=== PATIENT | male | born 1985 | race Caucasian/White ===

== ENCOUNTER 2016-08-25 23:32 | Inpatient (IN) | payer BC, OTHER ==
[2016-08-25] MEDS ORDERED: DIPH,PERTUS(ACELL)TETVAC-LF 0.5 ML VIAL IM ONE (23:38)
[2016-08-25] MEDS ORDERED: ceFAZolin 1,000 MG in DEXTROSE/WATER 1 50ML.BAG IVPB STA (23:38)
[2016-08-25] MEDS ORDERED: RX INFO: IV CONTRAST WAS GIVEN 1 EACH MISC MISCELLANE PRN (23:38)
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
[2016-08-26 00:04] LABS: Basophils # (A) 0.1 k/uL (0-0.2); Basophils % (A) 1 %; CH 28.6; CHCM 33.4; Eosinophils # (A) 0.1 k/uL (0-0.7); Eosinophils % (A) 1 %; HCT 43.5 % (39.0-53.0); HDW 2.31; HGB 14.1 gm/dL (13.0-17.5); Luc # (Auto) 0.14; Luc % (Auto) 2; Lymphocytes # (A) 2.8 k/uL (1.0-4.8); Lymphocytes % (A) 30 %; MCH 27.8 pg (25.0-35.0); MCHC 32.3 g/dL (31.0-37.0); Mean Platelet Volume 6.4; Monocytes # (A) 0.4 k/uL (0-1.0); Monocytes % (A) 4 %; Neutrophils # (A) 5.8 k/uL (1.3-7.7); Neutrophils % (A) 63 %; RBC 5.06 m/uL (4.30-5.90); RDW 13.1 % (11.5-15.5); WBC 9.2 k/uL (3.8-10.6); WBC (Perox) 9.69
[2016-08-26 00:11] LABS: ALT 39 U/L (21-72); AST 30 U/L (17-59); Alcohol <10 mg/dL; Alkaline Phosphatase 50 U/L (38-126); Anion Gap 14 mmol/L; Blood Urea Nitrogen 9 mg/dL (9-20); Calcium 9.1 mg/dL (8.4-10.2); Carbon Dioxide 26 mmol/L (22-30); Chloride 104 mmol/L (98-107); Glucose 142 mg/dL (74-99); Non-African American GFR(MDRD) >60 (>60 ml/min/1.73 sqM); Potassium 3.9 mmol/L (3.5-5.1); Sodium 144 mmol/L (137-145); Total Bilirubin 0.5 mg/dL (0.2-1.3)
[2016-08-26 00:14] LABS: Creatine Kinase 130 U/L (55-170)
--- NOTE | 2016-08-26 00:19 | XR ---
EXAM: XR Chest, 1 View. CLINICAL HISTORY: Reason: trauma TECHNIQUE: Frontal view of the chest. COMPARISON: None available FINDINGS: Lungs: No consolidation. Pleural space: Trace left apical pneumothorax, confirmed on subsequent CT. No pleural effusion. Heart: Unremarkable. No cardiomegaly. Mediastinum: Unremarkable. Bones/joints: Osseous structures are intact as visualized. IMPRESSION: Trace left apical pneumothorax, confirmed on subsequent CT. No mediastinal shift. Critical Value Communications 08/26/16 00:20 Call Doctor Regarding Pneumothorax, called Dr. Stokes on 08/26 00:20 (-05:00)
--- NOTE | 2016-08-26 00:20 | XR ---
EXAM: XR Pelvis, 1 or 2 Views. CLINICAL HISTORY: Reason: Trauma TECHNIQUE: Frontal view of the pelvis. COMPARISON: None available. FINDINGS: Bones/joints: Unremarkable. No acute fracture. No dislocation. Soft tissues: Unremarkable. IMPRESSION: No evidence of acute fracture or dislocation.
[2016-08-26 00:21] LABS: INR 1.1 (<1.1); Prothrombin Time 10.9 sec (9.0-12.0)
[2016-08-26 00:27] LABS: Creatine Kinase MB 0.8 ng/mL (0.0-2.4); Troponin I <0.012 ng/mL (0.000-0.034)
--- NOTE | 2016-08-26 00:28 | CT ---
EXAM: CT Chest With Intravenous Contrast. CLINICAL HISTORY: Reason: trauma TECHNIQUE: Axial computed tomography images of the chest with intravenous contrast. Coronal and sagittal reformats were obtained. CTDI is 8.10 mGy and DLP is 447.80 mGy-cm COMPARISON: Chest radiographs from the same day FINDINGS: Lungs: Bibasilar dependent atelectasis. No consolidation. Pleural space: Trace left pneumothorax. The pleural effusion. Heart: Unremarkable. No cardiomegaly. No significant pericardial effusion. Mediastinum: No mediastinal shift. Bones/joints: Left sixth rib costochondral cartilage fracture with mild displacement. Osseous structures are intact. Soft tissues: Anterior lower left chest wall laceration with adjacent subcutaneous emphysema. Vasculature: Unremarkable. No thoracic aortic aneurysm. Lymph nodes: Unremarkable. No enlarged lymph nodes. IMPRESSION: 1. Trace left pneumothorax. No mediastinal shift. 2. Left 6th rib costochondral cartilage fracture. Osseous structures are intact. 3. Anterior left chest wall laceration with adjacent subcutaneous emphysema. EXAM: CT Abdomen and Pelvis With Intravenous Contrast. CLINICAL HISTORY: Reason: trauma TECHNIQUE: Axial computed tomography images of the abdomen and pelvis with intravenous contrast. Coronal and sagittal reformats were obtained. CTDI is 8.10 mGy and DLP 568.7 mGy-cm COMPARISON: Pelvic radiographs from the same day FINDINGS: Lower thorax: Please see report for CT chest from the same day. ABDOMEN: Liver: Unremarkable. No mass. Gallbladder and bile ducts: Unremarkable. No calcified stones. No ductal dilation. Pancreas: Unremarkable. No mass. No ductal dilation. Spleen: Unremarkable. No splenomegaly. Adrenals: Unremarkable. No mass. Kidneys and ureters: Unremarkable. No solid mass. No hydronephrosis. Stomach and bowel: Unremarkable. No obstruction. No mucosal thickening. Appendix: No findings to suggest acute appendicitis. PELVIS: Bladder: Unremarkable. No mass. Reproductive: Unremarkable as visualized. ABDOMEN and PELVIS: Intraperitoneal space: Unremarkable. No free air. No significant fluid collection. Bones/joints: No acute fracture. No dislocation. Soft tissues: Unremarkable. Vasculature: Unremarkable. No abdominal aortic aneurysm. Lymph nodes: Unremarkable. No enlarged lymph nodes. IMPRESSION: No evidence of acute traumatic injury in the abdomen or pelvis.
[2016-08-26 00:30] LABS: Partial Thromboplastin Time 21.5 sec (22.0-30.0)
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
[2016-08-26] MEDS ORDERED: NALOXONE 0.4 MG/ML 1 ML VIAL IV PRN (01:31)
[2016-08-26] MEDS ORDERED: MORPHINE SULFATE 2 MG/ML SYRINGE IVP ONE (01:37)
--- NOTE | 2016-08-26 02:32 | XR ---
EXAM: XR Chest, 1 View. CLINICAL HISTORY: Reason: Pain TECHNIQUE: Frontal view of the chest. COMPARISON: Portable chest and chest CT of the prior day. FINDINGS: Lungs: Stable. No consolidation. Pleural spaces: Small left pneumothorax present on CT of the prior day is faintly visualized. The small amount of left-sided pleural fluid seen on that CT is not seen by this exam. Heart: Unremarkable. No cardiomegaly. Mediastinum: Unremarkable. Bones: Unremarkable. No acute fracture. IMPRESSION: Essentially stable including appearance of small left pneumothorax, as was seen on CT of the prior day where left-sided pleural fluid was better seen.
[2016-08-26 03:34] LABS: Glucose,Whole Blood 97 mg/dL (75-99)
[2016-08-26 03:39] VITALS: BMI 20.9
[2016-08-26] MEDS: MORPHINE SULFATE 2 MG/ML SYRINGE IV PRN ×5 (03:49→15:01)
[2016-08-26 05:13] LABS: Basophils % (A) 0 %; CH 28.7; CHCM 33.2; Eosinophils % (A) 0 %; HCT 40.9 % (39.0-53.0); HDW 2.36; HGB 13.5 gm/dL (13.0-17.5); Luc # (Auto) 0.08; Luc % (Auto) 1; Lymphocytes # (A) 0.8 k/uL (1.0-4.8); Lymphocytes % (A) 5 %; MCH 28.7 pg (25.0-35.0); Monocytes # (A) 0.6 k/uL (0-1.0); Monocytes % (A) 4 %; Neutrophils % (A) 91 %; RDW 13.1 % (11.5-15.5); WBC 17.6 k/uL (3.8-10.6); WBC (Perox) 17.85
[2016-08-26 05:36] LABS: Anion Gap 11 mmol/L; Blood Urea Nitrogen 11 mg/dL (9-20); Calcium 8.6 mg/dL (8.4-10.2); Carbon Dioxide 25 mmol/L (22-30); Chloride 104 mmol/L (98-107); Glucose 200 mg/dL (74-99); Magnesium 1.8 mg/dL (1.6-2.3); Non-African American GFR(MDRD) >60 (>60 ml/min/1.73 sqM); Phosphorous 3.7 mg/dL (2.5-4.5); Sodium 140 mmol/L (137-145)
[2016-08-26] MEDS ORDERED: Magnesium Replacement Protocol 1 EACH MISC MISCELLANE PRN (05:48)
[2016-08-26] MEDS: SODIUM CHLORIDE 0.9% 1,000 ML IV SCH ×2 (06:36→16:57)
[2016-08-26] MEDS: MAGNESIUM SULFATE-D5W PMX 1 GM in DEXTROSE/WATER 1 100ML.BAG IVPB SCH ×2 (06:38→08:28)
--- NOTE | 2016-08-26 07:52 | XR ---
EXAMINATION TYPE: XR chest 1V DATE OF EXAM: 08/26/2016 6:51 AM COMPARISON: Prior chest x-ray July HISTORY: Shortness of breath TECHNIQUE: Single frontal view of the chest is obtained. FINDINGS: There is no focal air space opacity, pleural effusion seen. Minimal apical pneumothorax ag ain noted. The cardiac silhouette size is within normal limits. There are overlying cardiac leads. Patient is rotated. The osseous structures are intact. IMPRESSION: Minimal left apical pneumothorax.
[2016-08-26] MEDS ORDERED: ceFAZolin 1 GM in SODIUM CHLORIDE 0.9% 100 ML IVPB SCH (08:00)
[2016-08-26] MEDS: ceFAZolin 1,000 MG in DEXTROSE/WATER 1 50ML.BAG IVPB SCH ×2 (08:28→16:56)
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
--- NOTE | 2016-08-26 10:55 | ECHOF ---
Referral Reason:pneumothorax MEASUREMENTS -------- HEIGHT: 185.4 cm WEIGHT: 71.7 kg BP: 106/54 RVIDd: 2.5 cm (< 3.3) IVSd: 1.1 cm (0.6 - 1.1) LVIDd: 3.8 cm (3.9 - 5.3) LVPWd: 1.1 cm (0.6 - 1.1) IVSs: 1.5 cm LVIDs: 2.2 cm LVPWs: 1.7 cm LA Diam: 2.5 cm (2.7 - 3.8) Ao Diam: 3.5 cm (2.0 - 3.7) AV Cusp: 2.8 cm (1.5 - 2.6) LA Diam: 2.7 cm (2.7 - 3.8) MV EXCURSION: 19.262 mm (> 18.000) MV EF SLOPE: 82 mm/s (70 - 150) EPSS: 0.4 cm FINDINGS -------- Sinus rhythm. No apicals available due to bandages The left ventricular size is normal. Left ventricular wall thickness is normal. Overall left ventricular systolic function is normal with, an EF between 60 - 65 %. The right ventricle is normal in size. The left atrium is normal in size. The right atrium was not well visualized. The aortic valve is trileaflet and appears structurally normal. Normal appearing mitral valve. The tricuspid valve appears structurally normal. No regurgitation noted The pulmonic valve was not well visualized. The aortic root size is normal. Normal inferior vena cava with normal inspiratory collapse consistent with estimated right atrial pressure of 5 mmHg. There is no pericardial effusion. CONCLUSIONS -------- 1. Sinus rhythm. 2. Normal appearing mitral valve. 3. The tricuspid valve appears structurally normal. 4. The pulmonic valve was not well visualized. 5. The aortic root size is normal. 6. Normal inferior vena cava with normal inspiratory collapse consistent with estimated right atrial pressure of 5 mmHg. 7. There is no pericardial effusion. 8. No apicals available due to bandages 9. The left ventricular size is normal. 10. Left ventricular wall thickness is normal. 11. Overall left ventricular systolic function is normal with, an EF between 60 - 65 %. 12. The right ventricle is normal in size. 13. The left atrium is normal in size. 14. The right atrium was not well visualized. 15. The aortic valve is trileaflet and appears structurally normal. PHONE CIRCUIT OPERATOR: Myrna Young RDCS
[2016-08-26] MEDS: NICOTINE 14MG/24HR PATCH TRANSDERM SCH (11:36)
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
--- NOTE | 2016-08-26 17:03 | P.PN ---
Progress Note - Text The patient states he feels well. He is not complaining of any significant pain. On exam his vital signs are stable. Chest is soft nontender. Abdomen soft nontender. Patient will be taken to surgery by Dr. Shahla Bajwa Friday for repair of his tendon injury.
[2016-08-26] MEDS: HYDROcodone/APAP 5-325MG 1 EACH TAB PO PRN ×2 (18:00→22:40)
[2016-08-27] MEDS: ceFAZolin 1,000 MG in DEXTROSE/WATER 1 50ML.BAG IVPB SCH ×3 (00:32→16:57)
[2016-08-27] MEDS: MORPHINE SULFATE 2 MG/ML SYRINGE IV PRN ×3 (01:00→19:49)
[2016-08-27] MEDS: HYDROcodone/APAP 5-325MG 1 EACH TAB PO PRN (05:47)
[2016-08-27] MEDS: SODIUM CHLORIDE 0.9% 1,000 ML IV SCH ×2 (05:48→19:52)
[2016-08-27 08:21] LABS: Basophils % (A) 0 %; CH 28.4; CHCM 32.5; Eosinophils # (A) 0.2 k/uL (0-0.7); Eosinophils % (A) 2 %; HCT 36.6 % (39.0-53.0); HDW 2.28; HGB 11.7 gm/dL (13.0-17.5); Luc # (Auto) 0.12; Luc % (Auto) 2; Lymphocytes # (A) 1.8 k/uL (1.0-4.8); Lymphocytes % (A) 24 %; MCH 28.1 pg (25.0-35.0); MCV 87.8 fL (80.0-100.0); Mean Platelet Volume 6.5; Monocytes # (A) 0.5 k/uL (0-1.0); Monocytes % (A) 7 %; Neutrophils # (A) 5.1 k/uL (1.3-7.7); Neutrophils % (A) 65 %; RBC 4.17 m/uL (4.30-5.90); WBC 7.8 k/uL (3.8-10.6); WBC (Perox) 8.33
[2016-08-27 08:31] LABS: Anion Gap 6 mmol/L; Blood Urea Nitrogen 13 mg/dL (9-20); Calcium 8.1 mg/dL (8.4-10.2); Carbon Dioxide 27 mmol/L (22-30); Chloride 107 mmol/L (98-107); Glucose 88 mg/dL (74-99); Magnesium 1.9 mg/dL (1.6-2.3); Non-African American GFR(MDRD) >60 (>60 ml/min/1.73 sqM); Phosphorous 3.2 mg/dL (2.5-4.5); Potassium 4.5 mmol/L (3.5-5.1); Sodium 140 mmol/L (137-145)
[2016-08-27] MEDS: NICOTINE 14MG/24HR PATCH TRANSDERM SCH (08:42)
--- NOTE | 2016-08-27 09:14 | XR ---
EXAMINATION TYPE: XR chest 1V portable DATE OF EXAM: 08/27/2016 8:07 AM COMPARISON: 08/26/2016 HISTORY: Follow-up pneumothorax TECHNIQUE: Single frontal view of the chest is obtained. FINDINGS: There is no focal air space opacity, pleural effusion, or pneumothorax seen. The cardiac silhouette size is within normal limits. The osseous structures are intact. IMPRESSION: 1. No sizable pneumothorax identified.
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
--- NOTE | 2016-08-27 13:03 | P.PN ---
Progress Note - Text SUBJECTIVE: I reviewed the medical record and interviewed Mr. Cannon. He was sitting comfortably on his hospital bed. His and young daughter was visiting. He denied feeling depressed or having thoughts of or suicide. His contacted his trade mark attorney and his court hearing has been postponed. OBJECTIVE: He presented as a casually groomed pleasant 31-year-old male. He maintained eye contact and tended to the interview. He had a bright facial expression. He showed no abnormality of psychomotor activity. His speech was spontaneous with normal rate rhythm and volume. His affect was bright, stable and appropriate. He denied suicidal ideation or wishes. He denied homicidal ideation. He denied depressive cognitions such as hopelessness, helplessness or worthlessness. He did not obsess over his legal problems. He did not express ideas reference or paranoid ideation. His thinking was abstract and associations were coherent and logical. He denied hallucinations and did not appear to be responding to internal stimuli. ASSESSMENT: He does not appear depressed and does not express suicidal ideation. He remains concerned about his legal problems but is not as preoccupied or hopelessness as he was on admission. PLAN: There is no indication for psychiatric hospitalization. Refer him for outpatient mental health treatment after discharge. I'll sign off on the case for now. If there are other concerns or questions please reconsult.
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
[2016-08-27] MEDS: BISACODYL 5 MG TABLET.DR PO SCH (20:13)
[2016-08-28] MEDS: MORPHINE SULFATE 2 MG/ML SYRINGE IV PRN ×3 (00:29→23:36)
[2016-08-28] MEDS: ceFAZolin 1,000 MG in DEXTROSE/WATER 1 50ML.BAG IVPB SCH ×3 (00:30→12:28)
[2016-08-28] MEDS: KETOROLAC 30 MG/ML 1 ML VIAL IVP PRN ×2 (08:10→21:14)
[2016-08-28] MEDS: NICOTINE 14MG/24HR PATCH TRANSDERM SCH (08:11)
[2016-08-28 09:01] LABS: Basophils # (A) 0.1 k/uL (0-0.2); Basophils % (A) 1 %; CH 28.7; Eosinophils # (A) 0.3 k/uL (0-0.7); Eosinophils % (A) 4 %; HCT 36.2 % (39.0-53.0); HGB 11.9 gm/dL (13.0-17.5); Luc # (Auto) 0.11; Luc % (Auto) 2; Lymphocytes # (A) 1.9 k/uL (1.0-4.8); Lymphocytes % (A) 30 %; MCH 28.8 pg (25.0-35.0); MCV 87.3 fL (80.0-100.0); Mean Platelet Volume 7.2; Monocytes # (A) 0.4 k/uL (0-1.0); Monocytes % (A) 7 %; Neutrophils # (A) 3.6 k/uL (1.3-7.7); Neutrophils % (A) 57 %; RBC 4.14 m/uL (4.30-5.90); RDW 12.9 % (11.5-15.5); WBC 6.4 k/uL (3.8-10.6); WBC (Perox) 6.94
[2016-08-28 09:14] LABS: Anion Gap 9 mmol/L; Blood Urea Nitrogen 20 mg/dL (9-20); Calcium 8.5 mg/dL (8.4-10.2); Carbon Dioxide 24 mmol/L (22-30); Chloride 108 mmol/L (98-107); Glucose 85 mg/dL (74-99); Magnesium 1.9 mg/dL (1.6-2.3); Non-African American GFR(MDRD) >60 (>60 ml/min/1.73 sqM); Phosphorous 4.3 mg/dL (2.5-4.5); Potassium 4.6 mmol/L (3.5-5.1); Sodium 141 mmol/L (137-145)
[2016-08-28] MEDS: SODIUM CHLORIDE 0.9% 1,000 ML IV SCH ×2 (09:44→23:37)
[2016-08-28] MEDS ORDERED: IV FLUID CONTINUATION 1,000 ML IV ONE (10:39)
[2016-08-28] MEDS ORDERED: MIDAZOLAM 2 MG/2 ML VIAL IV ONE (11:04)
[2016-08-28] MEDS ORDERED: fentaNYL (PF) 50 MCG/ML 2 ML AMP IV ONE (11:05)
[2016-08-28] MEDS ORDERED: ONDANSETRON 4 MG/2 ML VIAL IVP ONE (11:16)
[2016-08-28] MEDS ORDERED: ROPIVACAINE 5 MG/ML 30 ML VIAL ONE (12:22)
[2016-08-28] MEDS ORDERED: MIDAZOLAM 2 MG/2 ML VIAL ONE (12:22)
[2016-08-28] MEDS ORDERED: LIDOCAINE 2%-EPI 1:100,000 20 ML VIAL ONE (12:22)
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
[2016-08-28] MEDS ORDERED: ceFAZolin 1,000 MG in SODIUM CHLORIDE 0.9% 1,000 ML IRRIGATION ONE (12:42)
[2016-08-28] MEDS ORDERED: LACTATED RINGERS 1,000 ML IV ONE (13:49)
[2016-08-28] MEDS ORDERED: hydrOXYzine PAMOATE 25 MG CAP PO PRN (14:06)
[2016-08-28] MEDS ORDERED: HYDROmorphone 1 MG/ML 1 ML SYRINGE IVP PRN ×3 (14:06)
[2016-08-28] MEDS ORDERED: ONDANSETRON 4 MG/2 ML VIAL IVP PRN (14:06)
--- NOTE | 2016-08-28 14:06 | P.OP ---
Date of Procedure: 08/28/16 Preoperative Diagnosis: Left distal third dorsal forearm laceration with extensor tendon involvement Postoperative Diagnosis: 1. Left index finger complete extensor tendon laceration 2. Left middle finger complete extensor tendon laceration 3. Left ring finger complete extensor tendon laceration 4. Left thumb complete extensor tendon laceration Procedure(s) Performed: 1. Repair extensor tendon laceration left index finger 2. Repair extensor tendon laceration left middle finger 3. Repair extensor tendon laceration left ring finger 4. Repair extensor tendon laceration left thumb Anesthesia: MAC, regional (Axillary block) Surgeon: Gustavo Hess Rough Patcher #1: Berto Martinez Estimated Blood Loss (ml): 5 Pathology: none sent Condition: stable Disposition: PACU Indications for Procedure: 31-year-old patient was seen with a traumatic left forearm laceration with obvious clinical extensor tendon lacerations. I recommended exploration of the wound with probable extensor tendon repair. I reviewed the procedure, risks, complications and recovery. Patient understood and consented to the procedure. Operative Findings: See description of procedure Description of Procedure: The patient underwent an axillary nerve block by the department of anesthesia. The patient was taken to the operative suite. The patient did receive some preoperative IV antibiotics. Patient underwent IV sedation by the department of anesthesia. A well-padded tourniquet was placed proximal left upper extremity. The left upper extremity prepped and draped in the normal sterile orthopedic fashion. The left upper extremity was now elevated and tourniquet was insufflated 250. We then had removed the previous temporary sutures and atraumatic distal third dorsal laceration measuring about 3 cm. We then explored the wound and noted multiple tendon lacerations. We did extend the in the wound proximally 1 cm for better visualization. I now identified complete extensor tendon lacerations involving the index, middle and ring fingers. After careful dissection radially we noted a complete laceration to the thumb extensor tendon as well. We now irrigated the wound out copiously. There was complete lacerations to muscle bellies as well. I now again carefully explored the entire wound to make sure there was no other tendon or muscle involvement, there was not. I again irrigated the wound out. I now repaired the thumb extensor tendon utilizing 2-0 nonabsorbable suture augmented by 2-0 Vicryl suture. A good solid repair was noted. I repaired the other 3 tendons in the same fashion one by one. We noted good repair of all 4 extensor tendon lacerations and they were stable. I now irrigated the wound out again with antibiotic saline solution. I now loosely repaired that muscle belly laceration with a couple of 2-0 Vicryl sutures. We now irrigated the wound out again with antibiotic irrigant. I now repaired the skin with nylon suture. Sterile dressings were applied. A volar split was applied with the wrist extended it proximally 40 and full extension of all digits. The tourniquet was released and immediate capillary refill was noted of all digits. The patient was awakened, and taken to recovery stable condition. Michael BRAVO assisted with the procedure.
[2016-08-28] MEDS: LACTATED RINGERS 1,000 ML IV SCH ×2 (14:51→23:39)
[2016-08-28] MEDS: ceFAZolin 2 GM in SODIUM CHLORIDE 0.9% 100 ML IVPB SCH ×2 (15:26→23:36)
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
[2016-08-28] MEDS ORDERED: ceFAZolin 2 GM in SODIUM CHLORIDE 0.9% 100 ML IVPB ONE (20:00)
--- NOTE | 2016-08-28 21:04 | XR ---
EXAMINATION TYPE: XR chest 2V DATE OF EXAM: 08/28/2016 7:38 PM COMPARISON: NONE HISTORY: Follow-up TECHNIQUE: Frontal and lateral views of the chest are obtained. FINDINGS: There is no left apical pneumothorax. No right-sided pneumothorax either. Lungs appear clear bilaterally. On the lateral view there are blunted costophrenic angles posteriorly, consistent with small pleural effusions. The cardiomediastinal silhouette and bones and soft tissues are unremarkable. IMPRESSION: 1. Negative for pneumothorax. 2. Small bilateral posterior pleural effusions noted
[2016-08-28] MEDS: BISACODYL 5 MG TABLET.DR PO SCH (21:12)
[2016-08-29] MEDS: MORPHINE SULFATE 2 MG/ML SYRINGE IV PRN (04:09)
[2016-08-29 07:59] VITALS: BP 122/77; PULSE 85; RESP 20; TEMP 98
[2016-08-29] MEDS: ceFAZolin 1,000 MG in DEXTROSE/WATER 1 50ML.BAG IVPB SCH (08:10)
[2016-08-29] MEDS: NICOTINE 14MG/24HR PATCH TRANSDERM SCH (08:11)
[2016-08-29] MEDS: KETOROLAC 30 MG/ML 1 ML VIAL IVP PRN (08:11)
[2016-08-29] MEDS: LACTATED RINGERS 1,000 ML IV SCH (09:22)
[2016-08-29 10:45] LABS: Basophils % (A) 1 %; CH 28.5; CHCM 33.4; Eosinophils # (A) 0.1 k/uL (0-0.7); Eosinophils % (A) 2 %; HCT 35.6 % (39.0-53.0); HDW 2.38; Luc # (Auto) 0.13; Luc % (Auto) 1; Lymphocytes % (A) 22 %; MCH 28.8 pg (25.0-35.0); MCHC 33.6 g/dL (31.0-37.0); MCV 85.7 fL (80.0-100.0); Mean Platelet Volume 7.4; Monocytes # (A) 0.4 k/uL (0-1.0); Monocytes % (A) 4 %; Neutrophils # (A) 6.2 k/uL (1.3-7.7); Neutrophils % (A) 70 %; RBC 4.16 m/uL (4.30-5.90); RDW 12.9 % (11.5-15.5); WBC 8.9 k/uL (3.8-10.6); WBC (Perox) 9.14
[2016-08-29 10:58] LABS: Anion Gap 10 mmol/L; Blood Urea Nitrogen 14 mg/dL (9-20); Calcium 8.7 mg/dL (8.4-10.2); Carbon Dioxide 25 mmol/L (22-30); Chloride 107 mmol/L (98-107); Glucose 82 mg/dL (74-99); Magnesium 1.9 mg/dL (1.6-2.3); Non-African American GFR(MDRD) >60 (>60 ml/min/1.73 sqM); Phosphorous 3.2 mg/dL (2.5-4.5); Potassium 4.3 mmol/L (3.5-5.1); Sodium 142 mmol/L (137-145)
--- NOTE | 2016-08-29 11:31 | P.PN ---
Subjective Principal diagnosis: Status post extensor tendon repair and laceration repair left forearm Patient is seen today resting in his hospital bed, his family members present. Patient's to very well, pain is well-controlled. He's utilizing the splint at this time. Objective - Vital Signs Vital signs: Vital Signs Temp 98.0 F 08/29/16 07:58 Pulse 85 08/29/16 07:58 Resp 20 08/29/16 07:58 BP 122/77 08/29/16 07:58 Pulse Ox 98 08/29/16 07:58 Intake & Output 08/28/16 08/29/16 08/29/16 18:59 06:59 18:59 Intake Total 801 600 240 Output Total 5 Balance 796 600 240 Intake: IV 801 Oral 600 240 Output: Estimated Blood Loss 5 Other: Voiding Method Toilet Toilet Toilet # Voids 1 - Exam Left upper extremity: Splint is in good position. I'm able to visualize all the fingertips, very minimal swelling present. He is able to wiggle all the fingers with no difficulty. Sensation to light touch throughout the fingers are intact. Sensation to light touch proximal to the splint is intact. Cap refills less than 3 seconds. - Labs CBC & Chem 7: 08/29/16 09:37 08/29/16 09:42 Labs: Abnormal Lab Results - Last 24 Hours (Table) 08/29/16 Range/Units 09:37 RBC 4.16 L (4.30-5.90) m/uL Hgb 12.0 L (13.0-17.5) gm/dL Hct 35.6 L (39.0-53.0) % Assessment and Plan Plan: Assessment: 1. Postop day #1 status post extensor tendon repair and laceration repair left forearm Plan: 1. Pain control, patient be discharged home on oral medication 2. Instructions for splint care and activity were discussed with him at bedside 3. Other medical specialty recommendations 4. [facility]up at [facility] 2 weeks for recheck Time with Patient: Less than 30
== END 2016-08-29 11:42 | disposition home or self-care (01) | DRG 500 ==
LOC: EC 23:32 → 6ICU 08-26 01:32 → 4MS4W 08-26 20:43
PROVIDERS: ADMIT Surgery; ATTEND Surgery
PROC: 0KQ Muscles, Repair (ICD-10-PCS; 2016-08-25)
PROC: 0LQ60ZZ Repair Left Lower Arm and Wrist Tendon, Open Approach (ICD-10-PCS; 2016-08-28)
PROC: 0LQ60ZZ Repair Left Lower Arm and Wrist Tendon, Open Approach (ICD-10-PCS; 2016-08-28)
PROC: 0LQ60ZZ Repair Left Lower Arm and Wrist Tendon, Open Approach (ICD-10-PCS; 2016-08-28)
PROC: 0LQ60ZZ Repair Left Lower Arm and Wrist Tendon, Open Approach (ICD-10-PCS; principal; 2016-08-28 12:10)
DX: S56.422A Laceration of extensor muscle, fascia and tendon of left index finger at forearm level, initial encounter (principal); S21.332A Puncture wound without foreign body of left front wall of thorax with penetration into thoracic cavity, initial encounter; S27.0XXA Traumatic pneumothorax, initial encounter; F23 Brief psychotic disorder; R45.851 Suicidal ideations; F17.200 Nicotine dependence, unspecified, uncomplicated; S51.812A Laceration without foreign body of left forearm, initial encounter; S56.424A Laceration of extensor muscle, fascia and tendon of left middle finger at forearm level, initial encounter; S56.426A Laceration of extensor muscle, fascia and tendon of left ring finger at forearm level, initial encounter; S56.322A Laceration of extensor or abductor muscles, fascia and tendons of left thumb at forearm level, initial encounter; S61.215A Laceration without foreign body of left ring finger without damage to nail, initial encounter; F32.9 Major depressive disorder, single episode, unspecified; Z88.8 Allergy status to other drugs, medicaments and biological substances; X78.8XXA Intentional self-harm by other sharp object, initial encounter; Y92.9 Unspecified place or not applicable
CPT/HCPCS: 12036; 36415; 71010; 71020; 71260; 72170; 74177; 80048; 80053; 80320; 82550; 82553; 83735; 84100; 84484; 85025; 85610; 85730; 86850; 86900; 86901; 90471; 90715; 93005; 93306; 96365; 96375; 99291

== ENCOUNTER → 2016-12-19 | Outpatient (CLI) | payer OTHER ==
--- NOTE | 2016-12-20 08:56 | XR ---
EXAMINATION TYPE: XR forearm RT DATE OF EXAM: 12/19/2016 COMPARISON: NONE HISTORY: RT FOREARM PAIN WITH LACERATION. Two views of the forearm demonstrate that the osseous structures appear to be intact and the joint sp aces appear to be preserved. There is no acute fracture or dislocation. IMPRESSION: 1. No acute fracture or dislocation
== END | disposition home or self-care (01) ==
LOC: RADXRYALE 15:14
PROVIDERS: ATTEND Physician Assistant Medical
DX: S51.811D Laceration without foreign body of right forearm, subsequent encounter (principal)

== ENCOUNTER 2017-12-03 13:07 | Emergency (ER) | payer OTHER ==
[2017-12-03] MEDS ORDERED: methylPREDNISolone SOD SUCCI 125 MG/2 ML VIAL IM ONE (13:39)
[2017-12-03 13:44] VITALS: BP 142/83; PULSE 80; RESP 18; TEMP 97.8
--- NOTE | 2017-12-03 14:00 | ED ---
General Adult HPI - General Chief complaint: Neck Pain/Injury Stated complaint: neck pain Time Seen by Provider: 12/03/17 13:18 Source: patient, RN notes reviewed Mode of arrival: ambulatory Limitations: no limitations - History of Present Illness Initial comments: 32-year-old male patient see the emergency department for a chief complaint of scalp numbness exacerbated today. Patient has chronic neck problems and has had this numbness chronically in the past. Patient states he became nervous because his vision started to change slightly and look "wobbly" when he looked a certain way. Patient states the only thing that has helped in the past is steroids. He takes Motrin 800 3 times per day for this inflammation and numbness. Primary care provider is aware and patient knows he needs an MRI. Patient denies pain in the head or neck. Patient just states it is a numb tingly feeling bilaterally on the back of the scalp. Patient has no other complaints at this time including shortness of breath, chest pain, abdominal pain, nausea or vomiting, headache, or extremity weakness. - Related Data Home Medications Medication Instructions Recorded Confirmed Ibuprofen [Motrin] 800 mg PO TID PRN 08/26/16 08/26/16 Previous Rx's Medication Instructions Recorded Cephalexin [Keflex] 500 mg PO Q8HR #21 cap 08/28/16 Hydrocodone/Acetaminophen [Arnold 1 - 2 each PO Q4HR PRN #30 tab 08/28/16 5-325] predniSONE 50 mg PO DAILY #5 tablet 12/03/17 Allergies Allergy/AdvReac Type Severity Reaction Status Date / Time lorazepam [From Ativan] Allergy MOOD SWINGS Verified 12/03/17 13:19 Review of Systems ROS Statement: Those systems with pertinent positive or pertinent negative responses have been documented in the HPI. ROS Other: All systems not noted in ROS Statement are negative. Past Medical History Past Medical History: No Reported History History of Any Multi-Drug Resistant Organisms: None Reported Past Surgical History: Orthopedic Surgery Additional Past Surgical History / Comment(s): tendon repair to arm Past Psychological History: Bipolar Smoking Status: Current every day smoker Past Alcohol Use History: Occasional Past Drug Use History: None Reported General Exam Limitations: no limitations General appearance: alert, in no apparent distress Head exam: Present: atraumatic, normocephalic, normal inspection Eye exam: Present: normal appearance, PERRL, EOMI. Absent: scleral icterus, conjunctival injection, periorbital swelling ENT exam: Present: normal exam, normal oropharynx (uvula midline), mucous membranes moist, TM's normal bilaterally Neck exam: Present: normal inspection, full ROM. Absent: tenderness, meningismus, lymphadenopathy Respiratory exam: Present: normal lung sounds bilaterally. Absent: respiratory distress, wheezes, rales, rhonchi, stridor Cardiovascular Exam: Present: regular rate, normal rhythm, normal heart sounds. Absent: bradycardia, tachycardia, irregular rhythm Back exam: Present: normal inspection, full ROM. Absent: tenderness Neurological exam: Present: alert, oriented X3, CN II-XII intact, other ( strength 5/5 in bilat upper extremities.) Course Vital Signs 12/03/17 13:19 Temperature 97.8 F Pulse Rate 80 Respiratory 18 Rate Blood Pressure 142/83 O2 Sat by Pulse 100 Oximetry Medical Decision Making - Medical Decision Making 32-year-old male presents to the emergency department for a chief complaint of numbness to the back of the scalp. This problem has been chronic but it was exacerbated slightly today. 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 Patient denies any headache. Patient had slight visual changes which resolved within his stay in the emergency department. Physical exam was unremarkable. Patient has full range of motion of the neck. X-ray of the cervical spine shows no acute process. X-ray of the thoracic spine also shows no acute abnormality. Patient will need to follow up with neurology for this. He was given a referral. He was also given a shot of Solu-Medrol and a prescription for oral prednisone for the next 5 days. He will continue to take Motrin was also educated to take Tylenol on top of that. He will come back if he has any worsening symptoms or develops a headache. Disposition Clinical Impression: Cervical radiculopathy Disposition: HOME SELF-CARE Condition: Good Instructions: Paresthesia (ED) Additional Instructions: Please take Motrin and Tylenol for pain. Please take steroids as directed. Please follow-up with neurology in 1-2 days. Return to the emergency department if you have any worsening symptoms. Prescriptions: predniSONE 50 mg PO DAILY #5 tablet Is patient prescribed a controlled substance at d/c from ED?: No Referrals: Hallie Nunes DO [Primary Care Provider] - 1-2 days Misti Davis MD [STAFF PHYSICIAN] - 1-2 days Time of Disposition: 14:49
--- NOTE | 2017-12-03 14:19 | XR ---
EXAMINATION TYPE: XR cervical spine comp DATE OF EXAM: 12/03/2017 COMPARISON: NONE HISTORY: Pain TECHNIQUE: Four views are submitted. FINDINGS: The odontoid is intact. There are no compression deformities. The prevertebral soft tissue structur es are within normal limits. IMPRESSION: 1. No acute process. If symptoms persist consider MRI.
--- NOTE | 2017-12-03 14:20 | XR ---
EXAMINATION TYPE: XR thoracic spine 2V DATE OF EXAM: 12/03/2017 COMPARISON: NONE HISTORY: Pain Alignment is anatomic. There is no compression deformities. Vertebral body height and disc interspa gigi are maintained. IMPRESSION: 1. No acute abnormality.
== END 2017-12-03 15:02 | disposition home or self-care (01) ==
LOC: EC 13:07
DX: M54.12 Radiculopathy, cervical region (principal); F17.200 Nicotine dependence, unspecified, uncomplicated; Z88.8 Allergy status to other drugs, medicaments and biological substances
CPT/HCPCS: 72070; 72050; 99283; 96372; J2930

== ENCOUNTER 2019-05-03 20:24 | Emergency (ER) | payer OTHER ==
[2019-05-03 20:38] VITALS: BP 122/79; PULSE 84; RESP 18; TEMP 98
[2019-05-03] MEDS ORDERED: PROPARACAINE 0.5% OPHTH DROPS 15 ML BTL LEFT EYE STA (21:08)
[2019-05-03] MEDS ORDERED: IBUPROFEN 600 MG STARTER PACK 4 TAB BTL PO STA (21:44)
[2019-05-03] MEDS ORDERED: ACET/COD 300 MG/30 MG STARTER PACK 6 TAB BTL PO STA (21:44)
[2019-05-03] MEDS ORDERED: ARTIFICIAL TEARS-HYPROMELLOSE DROPS 15 ML BTL BOTH EYES STA (21:44)
--- NOTE | 2019-05-03 21:47 | ED ---
Eye Problem HPI - General Chief complaint: Eye Problems Stated complaint: Eye Pain Time Seen by Provider: 05/03/19 20:40 Source: patient Mode of arrival: ambulatory Limitations: no limitations - History of Present Illness Initial comments: 33-year-old male patient presents to the emergency department today for evaluation of left eye pain and discomfort. 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 States he has had this in the past. Denies any blurred or double vision. States he is having tearing to the left eye. States he is light sensitive. Patient is unsure if he got something in his eye. He does admit that he was wearing his mask related to some of his welding to the side of him which flashed through. He denies any fever or chills. Denies headache. Patient denies any recent rash, shortness breath, chest pain, abdominal pain, nausea, vomiting, diarrhea, constipation, back pain, numbness, tingling, dizziness, weakness, hematuria, dysuria, urinary urgency, urinary frequency, or any other complaints. - Related Data Home Medications Medication Instructions Recorded Confirmed [id number] 2 tab PO Q6HR PRN 05/08/18 05/08/18 [Excedrin] Ibuprofen [Motrin Ib] 200 - 400 mg PO Q6H PRN 05/08/18 05/08/18 Allergies Allergy/AdvReac Type Severity Reaction Status Date / Time lorazepam [From Ativan] Allergy MOOD SWINGS Verified 05/03/19 20:38 Review of Systems ROS Statement: Those systems with pertinent positive or pertinent negative responses have been documented in the HPI. ROS Other: All systems not noted in ROS Statement are negative. Past Medical History Past Medical History: No Reported History History of Any Multi-Drug Resistant Organisms: None Reported Past Surgical History: No Surgical Hx Reported, Orthopedic Surgery Additional Past Surgical History / Comment(s): facial sx Past Psychological History: Bipolar Smoking Status: Current every day smoker Past Alcohol Use History: Rare Past Drug Use History: None Reported General Exam Limitations: no limitations General appearance: alert, in no apparent distress, other (This is a well- developed, well-nourished adult male patient in no acute distress. Vital signs upon presentation are temperature 98.2F, pulse 84, respirations 18, blood pressure 122/79, pulse ox 97% on room air.) Eye exam: Present: PERRL, EOMI, conjunctival injection (Mild left), other (Fluorescein stain with Wood's lamp examination was performed, there is no evidence for corneal abrasion or conjunctival abrasion. No evidence for foreign body.). Absent: normal appearance, scleral icterus, periorbital swelling ENT exam: Present: normal exam, normal oropharynx, mucous membranes moist Respiratory exam: Present: normal lung sounds bilaterally. Absent: respiratory distress, wheezes, rales, rhonchi, stridor Cardiovascular Exam: Present: regular rate, normal rhythm, normal heart sounds. Absent: systolic murmur, diastolic murmur, rubs, gallop, clicks Neurological exam: Present: alert, oriented X3, CN II-XII intact Psychiatric exam: Present: normal affect, normal mood Skin exam: Present: warm, dry, intact, normal color. Absent: rash Course Vital Signs 05/03/19 20:36 Temperature 98 F Pulse Rate 84 Respiratory 18 Rate Blood Pressure 122/79 O2 Sat by Pulse 97 Oximetry Medical Decision Making - Medical Decision Making 33-year-old male patient presents to the emergency department today for evaluation of left eye pain and discomfort. Patient symptoms and findings are consistent with flash.. He'll be treated with lubricating eyedrops and pain medications. He is instructed to follow-up with ophthalmology for further evaluation 1-2 days. Return parameters were discussed in detail. He verbalizes understanding and agrees with this plan. Disposition Clinical Impression: Photokeratitis Disposition: HOME SELF-CARE Condition: Good Instructions (If sedation given, give patient instructions): Eye Lubricant ( Into the eye), Corneal Flash Massey (ED) Additional Instructions: Use medications as directed. Follow-up with ophthalmology if symptoms are not improved over the next 1-2 days, recommendation has been made feel below. Follow-up with your primary care physician for recheck in 1-2 days. Return to the emergency department immediately for any new, worsening, or concerning s ymptoms. Is patient prescribed a controlled substance at d/c from ED?: No Referrals: Dominga Tripathi MD [STAFF PHYSICIAN] - 1-2 days Time of Disposition: 21:47
== END 2019-05-03 22:05 | disposition home or self-care (01) ==
LOC: EC 20:24
DX: H16.132 Photokeratitis, left eye (principal); F17.200 Nicotine dependence, unspecified, uncomplicated; Z88.8 Allergy status to other drugs, medicaments and biological substances
CPT/HCPCS: 99283

== ENCOUNTER → 2021-12-14 | Outpatient (CLI) | payer BC ==
--- NOTE | 2021-12-14 17:09 | CT ---
EXAMINATION TYPE: CT sinus w con DATE OF EXAM: 12/14/2021 COMPARISON: None HISTORY: 36-year-old male R85.5, Abnormal microbiologic findings in specimen CT DLP: 765.7 mGycm Automated exposure control for dose reduction was used. TECHNIQUE: Noncontrast axial views of the paranasal sinuses were obtained. Coronal reconstructions pe rformed. FINDINGS: PARANASAL SINUSES: There is complete opacification of the left maxillary sinus. Mild to moderate mucosal thickening within the bilateral ethmoid air cells. Mild mucosal thickening right maxillary sinus. Suspect a small 8 mm mucocele interposed between the bifrontal sinuses. Sphenoid sinuses well pneumatized. There is no air-fluid level. Reactive yoav- osteogenesis is not seen. There is no destruction of the osseous michael of the paranasal sinuses. THE NASAL CAVITY: There is marked focal leftward nasal septal deviation. This seems to contributing to some lateral dev iation to the left maxillary antrum narrowing the left maxillary infundibulum. The right osteomeatal complex is patent. The imaged brain, sella, skull base and orbits are normal in appearance. Mastoid air cells and middle ear cavities are well pneumatized. Reformatted images confirm above findings. IMPRESSION: 1. Complete opacification of the left maxillary sinus. 2. There is sharp leftward nasal septal deviation. This may to contribute to some lateral deviation o f the left medial maxillary sinus wall, narrowing the left maxillary infundibulum. 3. Mild to moderate mucosal thickening within the ethmoid air cells. Also, there is what appears to b e a small 8 mm mucocele interposed between the bifrontal sinuses.
== END | disposition home or self-care (01) ==
LOC: RADCTMAIN 16:03
PROVIDERS: ATTEND Internal Medicine Infectious Disease
DX: J34.2 Deviated nasal septum (principal); J34.89 Other specified disorders of nose and nasal sinuses
CPT/HCPCS: 70487; Q9967